=== PATIENT | female | born 1990 | race Caucasian/White ===

== ENCOUNTER 2020-05-02 12:07 | Outpatient (REF) | payer MEDICAID, SELFPAY ==
--- NOTE | 2020-05-02 11:15 | PAPFT_PTH ---
PATIENT: Alicia Kirk LOC: [facility] U#:[id number] AGE/SX: 29/F ROOM: RE05/02/[address]: Kp Royal : 1990 BED: DIS: 05/02/2020 SPEC #: [id number] RECD: 05/03/20 13:00 STATUS: OCTAVIA REKaia #: [id number] ALYSA: 05/02/20 11:[address]: Kp Royal DEPT: [facility] Cytology RECD BY: Gloria Muro Tissues: 1 - CX/ENDOCX FOR PAP SMEARS Procedures: PAP THIN PREP/[facility] Screening Comments: [id number] ([id number]#) (CHLAMYDIA/GC)
[2020-05-05 11:03] LABS: Chlamydia Result Negative (Negative)
[2020-05-05 11:04] LABS: GC Result Negative (Negative)
== END 2020-05-02 12:27 ==
LOC: NCHCN 12:07
PROVIDERS: PCP Family Medicine; Visit Provider Family Medicine
DX: Z12.4 Encounter for screening for malignant neoplasm of cervix (principal); Z00.00 Encounter for general adult medical examination without abnormal findings; Z11.3 Encounter for screening for infections with a predominantly sexual mode of transmission
CPT/HCPCS: 87491; 87591; 88142

== ENCOUNTER 2023-07-30 13:26 | Outpatient (REF) | payer MEDICAID, SELFPAY ==
--- NOTE | 2023-07-30 11:15 | PAPFT_PTH ---
PATIENT: Alicia Kirk [id number] AGE/SX: 32/F ROOM: RE07/30/[address]: Kp Royal : 1990 BED: DIS: 07/30/2023 SPEC #: [id number] RECD: 07/31/23 12:52 STATUS: OCTAVIA REQ #: [id number] ALYSA: 07/30/23 11:[address]: Kp Royal DEPT: [facility] Cytology RECD BY: Gloria Muro Tissues: 1 - CX/ENDOCX FOR PAP SMEARS Procedures: PAP THIN PREP/[facility] Screening HPV DNA PROBE Comments: [id number] (CHLAMYDIA/GC)
--- OUTSIDE RECORDS SUMMARY | 2023-07-30 13:28 | XMS_ITS | CCD ---
Author Name Unknown Address [address] [place] [address] [phone] Organization Unknown Address [address] [place] [address] [phone] Care Team Providers Care Counterintelligence/Humint Specialist Name Role Phone ELVIA JASON Attending Physician [phone] Vital Signs Unknown or Not Available. Allergies Allergy Code Allergy Type Reaction Status No Known Allergies 0 No known allergies Active Procedures Unknown or Not Available. History of Immunizations Immunization Code Date influenza, injectable, quadrivalent, preservativ e free 150 04/12/2018 Problems No Known Problems Results Unknown or Not Available. Active Medications Unknown or Not Available. Medications Administered During Visit Unknown or Not Available. Encounters Encounter Diagnosis Diagnosis Code Start Date Radiculopathy, lumbar region M5416 Social History Smoking Status Code Start Date End Date Current every day smoker [id number] Patient Decision Aids Unknown or Not Available. Discharge Instructions You were admitted to [facility] on 12/05/2021 12:34 with a principal diagnosis of Radiculopathy, lumbar region You were discharged from [facility] on 01/22/2022 13:04 Should you have any questions prior to discharge, please contact a member of your healthcare team. If you have left the hospital and have any questions, please contact your primary care physician. Chief Complaint and Reason For Visit Unknown or Not Available. Function Status Unknown or Not Available. Plan of Care Unknown or Not Available. Referral/Transition of Care Unknown or Not Available.
[2023-08-01 15:36] LABS: Chlamydia Result Negative (Negative); GC Result Negative (Negative)
== END 2023-07-30 13:27 | disposition home or self-care (01) ==
LOC: NCHCN 13:26
PROVIDERS: PCP Family Medicine; Visit Provider Family Medicine
DX: Z00.00 Encounter for general adult medical examination without abnormal findings (principal)
CPT/HCPCS: 87491; 87591; 88142; 87624

== ENCOUNTER 2023-10-02 18:38 | Outpatient (REF) | payer MEDICAID, SELFPAY ==
[2023-10-02 21:02] LABS: Hemoglobin A1C 5.7 % (<5.7)
[2023-10-02 21:06] LABS: ALT 33 U/L (14-59); AST 20 U/L (15-37); Albumin 3.7 g/dL (3.4-5.0); Alkaline Phosphatase 87 U/L (46-116); Anion Gap 8.3 mmol/L (3-11); BUN 14 mg/dL (7-18); Bilirubin, Total 0.2 mg/dL (0.2-1.0); CO2 25.7 mmol/L (21.0-32.0); CREATININE 0.6 mg/dL (0.55-1.02); Calcium 8.9 mg/dL (8.5-10.1); Calculated LDL 108 mg/dL (<100); Chloride 107 mmol/L (98-107); Cholesterol 166 mg/dL (<200); Estimated GFR 122.23 (mL/min/1.73m2); Glucose 82 mg/dL (74-106); HDL Cholesterol 48 mg/dL (40-60); Potassium 3.9 mmol/L (3.5-5.1); Sodium 141 mmol/L (136-145); Total Protein 7.3 g/dL (6.4-8.2); Triglyceride 51 mg/dL (<150)
== END 2023-10-02 18:39 | disposition home or self-care (01) ==
LOC: NCHCN 18:38
PROVIDERS: PCP Family Medicine; Visit Provider Family Medicine
DX: Z00.00 Encounter for general adult medical examination without abnormal findings (principal); E66.9 Obesity, unspecified
CPT/HCPCS: 80053; 80061; 82306; 83036

== ENCOUNTER 2024-10-13 11:56 | Outpatient (REF) | payer MEDICAID, SELFPAY ==
[2024-10-13 15:30] LABS: Hemoglobin A1C 5.7 % (<5.7)
[2024-10-13 15:43] LABS: ALT 29 U/L (14-59); AST 20 U/L (15-37); Albumin 4.1 g/dL (3.4-5.0); Alkaline Phosphatase 101 U/L (46-116); Anion Gap 8.9 mmol/L (3-11); BUN 16 mg/dL (7-18); Bilirubin, Total 0.3 mg/dL (0.2-1.0); CO2 27.1 mmol/L (21.0-32.0); CREATININE 0.7 mg/dL (0.55-1.02); Calcium 9.4 mg/dL (8.5-10.1); Chloride 107 mmol/L (98-107); Estimated GFR 117.04 (mL/min/1.73m2); Glucose 86 mg/dL (74-106); Potassium 4.3 mmol/L (3.5-5.1); Sodium 143 mmol/L (136-145); Total Protein 7.9 g/dL (6.4-8.2)
[2024-10-13 16:30] LABS: Vitamin D 25 Total 40 ng/mL (30-100)
== END 2024-10-13 11:57 | disposition home or self-care (01) ==
LOC: NCHCN 11:56
PROVIDERS: PCP Family Medicine; Visit Provider Family Medicine
DX: E55.9 Vitamin D deficiency, unspecified (principal); E66.9 Obesity, unspecified
CPT/HCPCS: 80053; 82306; 83036

== ENCOUNTER 2025-04-29 17:41 | Outpatient (REF) | payer MEDICAID, SELFPAY ==
[2025-04-29 21:05] LABS: HCT 43.5 % (36.0-46.0); HGB 14.2 g/dL (11.2-15.7); MCH 28.3 pg (27.0-33.0); MCHC 32.6 % (32.0-36.0); MCV 87 fL (80-95); MPV 9.9 fL (8.0-11.0); Platelet Count 310 10^3/uL (130-400); RBC 5.01 10^6/uL (3.93-5.22); RDW 12.9 % (11.7-14.6); RDW-SD 40.3 fL; WBC 8.16 10^3/uL (4.4-10.8)
[2025-04-29 21:18] LABS: Hemoglobin A1C 5.6 % (<5.7)
[2025-04-29 21:40] LABS: ALT 21 U/L (14-59); AST 23 U/L (15-37); Albumin 4.0 g/dL (3.4-5.0); Alkaline Phosphatase 108 U/L (46-116); Anion Gap 9.4 mmol/L (3-11); BUN 12 mg/dL (7-18); Bilirubin, Total 0.3 mg/dL (0.2-1.0); CO2 26.6 mmol/L (21.0-32.0); Calcium 8.7 mg/dL (8.5-10.1); Chloride 103 mmol/L (98-107); Cholesterol 192 mg/dL (<200); Ferritin 75 ng/mL (8-252); Glucose 81 mg/dL (74-106); HDL Cholesterol 46 mg/dL (>or=50); Potassium 3.8 mmol/L (3.5-5.1); Sodium 139 mmol/L (136-145); TSH (W/Ref FT4) 2.56 uIU/mL (0.36-3.74); Total Protein 7.9 g/dL (6.4-8.2); Vitamin D 25 Total 47 ng/mL (30-100)
== END 2025-04-29 17:42 | disposition home or self-care (01) ==
LOC: NCHCN 17:41
PROVIDERS: PCP Family Medicine; Visit Provider Family Medicine
DX: G25.81 Restless legs syndrome (principal); R52 Pain, unspecified; R73.03 Prediabetes; E55.9 Vitamin D deficiency, unspecified
CPT/HCPCS: 80053; 80061; 82306; 85027; 82728; 83036; 84443